=== PATIENT | male | born 1965 | race Caucasian/White ===

== ENCOUNTER 2018-07-08 10:37 | Day surgery (SDC) | payer BC ==
[~2018-07-08] VITALS: Ht 185.4 cm; Wt 122.5 kg
[~2018-07-08 10:37] MED LIST: ACET650SUP PR; ALLO100; ALLO300 PO; ASCO500; CALGLU500; CEPH500 PO; CETI10; CETI5 PO; CHOL10002; CHOL10002 PO; CODBUTASA PO; COLCRYS0.6 MG PO; Cleocin HCl150 MG PO; ESOM20; FENO160 PO; Flomax0.4 MG PO; HM SAW PALMETT1 EACH PO; HYDACE10B PO; HYDMOR2 PO; HYDR1TAB94 PO; HYOS0.375T PO; IBUP200; IBUP400 PO; IBUP600; KETO10 PO; LORA2 PO; MECL25 PO; OMEP10ER PO; OMEP20ER PO; ONDA8ODT MM; OXYACE5T; OXYACE5T PO; Omega 3 Fish O1 EACH PO; Omeprazole20 M1 PO; PROBIOTIC1 EAC1 PO; PROM25 PO; Percocet 5-3251 EACH PO; Phenergan25 MG PR; Prilosec Otc20 MG PO; RXHYDACE PO; RXHYDMOR2 PO; SAW PALMENTO; Saw Palmetto450 MG PO; St. John's Wor150 MG; St. John's Wor300 M1 PO; TAMS.4ER PO; VITAMIN E; ZERTEC; Zofran Odt4 MG PO; Zofran8 MG PO; [UNRECOGNIZED DRUG - OTHER]; [UNRECOGNIZED DRUG - OTHER]; [UNRECOGNIZED DRUG - OTHER]
[2018-07-08] MEDS ORDERED: Loratadine10 MG PO ×2 (10:59)
== END 2018-07-08 13:14 | disposition home or self-care (01) ==
LOC: ORSCSDS 10:37
PROVIDERS: Internal Medicine Gastroenterology
PROC: 0DBK8ZX Excision of Ascending Colon, Via Natural or Artificial Opening Endoscopic, Diagnostic (ICD-10-PCS; principal; 2018-07-08 12:15)
PROC: 0DBL8ZX Excision of Transverse Colon, Via Natural or Artificial Opening Endoscopic, Diagnostic (ICD-10-PCS; principal; 2018-07-08 12:15)
PROC: 0DBE8ZX Excision of Large Intestine, Via Natural or Artificial Opening Endoscopic, Diagnostic (ICD-10-PCS; principal; 2018-07-08 12:15)
PROC: 0DBP8ZX Excision of Rectum, Via Natural or Artificial Opening Endoscopic, Diagnostic (ICD-10-PCS; principal; 2018-07-08 12:15)
DX: R19.7 Diarrhea, unspecified (principal); D12.2 Benign neoplasm of ascending colon; D12.3 Benign neoplasm of transverse colon; D12.8 Benign neoplasm of rectum; K57.30 Diverticulosis of large intestine without perforation or abscess without bleeding; Z83.71 Family history of colonic polyps; G47.33 Obstructive sleep apnea (adult) (pediatric); Z79.899 Other long term (current) drug therapy; E66.9 Obesity, unspecified; Z68.35 Body mass index [BMI] 35.0-35.9, adult
CPT/HCPCS: 88305; J2704; J7120

== ENCOUNTER 2018-07-09 07:21 | Observation (INO) | payer BC ==
[~2018-07-09] VITALS: Ht 185.4 cm; Wt 122.7 kg
[~2018-07-09 07:21] MED LIST changes: +Loratadine10 MG PO
[2018-07-09 09:30] LABS: BASOPHILS ABSOLUTE AUTO 0.04 K/mm3 (0.00-0.23); BASOPHILS PERCENT AUTO 1 % (0-2); EOSINOPHILS PERCENT AUTO 3 % (0-6); Hematocrit 40.7 % (37.0-53.0); Hemoglobin 13.4 g/dL (13.5-17.5); IMMATURE GRAN ABSOLUTE AUTO 0.02 K/mm3 (0.00-0.10); IMMATURE GRAN PERCENT AUTO 0 % (0-1); LYMPHOCYTES ABSOLUTE AUTO 1.64 K/mm3 (0.84-5.20); LYMPHOCYTES PERCENT AUTO 28 % (21-46); MONOCYTES ABSOLUTE AUTO 0.65 K/mm3 (0.16-1.47); MONOCYTES PERCENT AUTO 11 % (4-13); Mean Corpuscular HGB 29.6 pg (26.0-34.0); Mean Corpuscular HGB Conc 32.9 g/dL (31.5-36.5); Mean Corpuscular Volume 90 fL (80-100); Mean Platelet Volume 9.4 fL (9.1-12.4); NEUTROPHILS ABSOLUTE AUTO 3.42 K/mm3 (1.96-9.15); NEUTROPHILS PERCENT AUTO 57 % (41-73); Platelet Count 266 K/mm3 (150-400); RDW Coefficient Variation 12.5 % (11.7-14.2); Red Blood Cell Count 4.52 M/mm3 (4.30-5.90); White Blood Cell Count 5.97 K/mm3 (4.00-11.30)
[2018-07-09 09:59] LABS: Alanine Aminotransfer (ALT/SGP 44 U/L (12-78); Albumin, Blood 3.9 g/dL (3.4-5.0); Albumin/Globulin Ratio 1.1 (0.8-1.8); Alk Phos 60 U/L (50-136); Anion Gap 4 mmol/L (6-16); Aspartate Aminotrans (AST/SGOT 29 U/L (12-37); Bilirubin, Total 0.4 mg/dL (0.1-1.0); Blood Urea Nitrogen 20 mg/dL (8-24); Bun/Creatinine Ratio 17.7 (12.0-20.0); CO2, Blood 27 mmol/L (21-32); Calcium, Blood 8.6 mg/dL (8.5-10.1); Chloride, Blood 107 mmol/L (98-108); Creatinine, Blood 1.13 mg/dL (0.60-1.20); Globulin, Blood 3.6 g/dL (2.2-4.0); Glomerular Filtration Rate >60 (60-); Glucose, Blood 117 mg/dL (70-99); Potassium, Blood 4.4 mmol/L (3.5-5.5); Sodium, Blood 138 mmol/L (136-145); Total Protein, Blood 7.5 g/dL (6.4-8.2)
--- NOTE | 2018-07-09 10:19 | NUR ---
PT ADMITTED PT ADMITTED AT [address] DR[address] CAVAZOS. DR. CAVAZOS CALLED FOR ORDERED & TO NOTIFY HIM THAT THE PT WAS ADMITTED. VSS. PT & OR[facility] TO ROOM. [facility] PT DENIES NEEDS AT THIS TIME. PT STATES HE CONTINUES TO HAVE LOOSE BLOODY STOOL.
--- NOTE | 2018-07-09 13:42 | NUR ---
PT UPDATE PT AMBULATED WITHIN & AROUND ROOM. PT STATES HIS STOOLS ARE FORMED NOW COMPARED TO BEFORE HE CAME IN WHEN THEY WERE LIQUID. PT STOOL IS DARK IN COLOR, METALIC SMELLING, OBVIOUS BLOOD WITHIN STOOL. NO OTHER CHANGES IN ASSESSENT AT THIS TIME. WILL CONTINUE TO MONITOR.
--- NOTE | 2018-07-09 16:39 | NUR ---
SHIFT SUMMARY NO CHANGES IN ASSESSMENT AT THIS TIME. PT LAST BM CHARTED & FORMED, BUT CONTINUES TO BE BLOODY. PT ENCOURAGED TO AMBULATE BY DR. CAVAZOS. VSS. H&H STABLE. REPEAT H&H RESULTS TO BE CALLED TO DR. CAVAZOS WHEN COMPLETED. PT IND IN ROOM. AT BEDSIDE. PT DENIES NEEDS AT THIS TIME. WILL CONTINUE TO MONITOR UNTIL TURNOVER IS COMPLETE.
[2018-07-09 19:58] LABS: Hematocrit 39.9 % (37.0-53.0); Hemoglobin 13.2 g/dL (13.5-17.5)
--- NOTE | 2018-07-10 05:15 | NUR ---
SHIFT SUMMARY PT HAD UNEVENTFUL SHIFT. PT HAD NO COMPLAINTS OR ISSUES. PT DID HAVE TWO BLACK, TARRY BLOODY STOOLS NOTED. PT SLEPT WELL T/O SHIFT. VSS. PT CURRENTLY SLEEPING AND BREATHING EASY WITH CPAP. PT STAYED NIGHT WITH PT. CALL [facility] IN REACH.
[2018-07-10 05:23] LABS: Hematocrit 39.5 % (37.0-53.0); Hemoglobin 12.8 g/dL (13.5-17.5)
--- NOTE | 2018-07-10 09:50 | NUR ---
DISCHARGE NOTE PT DISCHARGED POV WITH SPOUSE AND IN NO ACUTE DISTRESS; WRITTEN RX PROVIDED FOR REPEAT H&H IN A.M. BY DR. CAVAZOS. PT VERBALIZED UNDERSTANDING OF CONTINUING A CLEAR LIQUID DIET. ALL CURRENT REGULAR MEDICATIONS TO BE CONTINUED WITHOUT CHANGES.
== END 2018-07-10 09:58 | disposition home or self-care (01) ==
LOC: MEDS 07:21 → UNDOADMOB 08:20 → MEDS 08:20 → UNDOADMOB 15:47 → MEDS 07-10 09:58
PROVIDERS: ADMIT Internal Medicine Gastroenterology
DX: K62.5 Hemorrhage of anus and rectum (principal); R10.9 Unspecified abdominal pain; G47.33 Obstructive sleep apnea (adult) (pediatric); E78.00 Pure hypercholesterolemia, unspecified; Z88.2 Allergy status to sulfonamides; Z79.899 Other long term (current) drug therapy; Z88.5 Allergy status to narcotic agent
CPT/HCPCS: 36415; 80053; 85014; 85018; 85025; 94762; G0378

== ENCOUNTER → 2021-04-01 | Outpatient (CLI) | payer BC | LOC: LAB SHORT 09:27 → PLD 09:27 | DX: L91.8 Other hypertrophic disorders of the skin (principal) | CPT/HCPCS: 88305 ==

== ENCOUNTER → 2021-08-15 | Outpatient (CLI) | payer BC ==
[2021-08-15 11:02] LABS: Bun/Creatinine Ratio 22.5 (12.0-20.0); Creatinine, Blood 0.89 mg/dL (0.60-1.20); Potassium, Blood 4.2 mmol/L (3.5-5.5)
== END ==
LOC: LAB 09:22 → LAB SHORT 09:22
PROVIDERS: Physician Assistant
DX: I10 Essential (primary) hypertension (principal); R73.03 Prediabetes
CPT/HCPCS: 36415; 80048; 83036

== ENCOUNTER 2023-10-08 11:06 | Emergency (ER) | payer OTHER, BC ==
[~2023-10-08] VITALS: Ht 185.4 cm; Wt 138.3 kg
[2023-10-08] MEDS ORDERED: Ondansetron HCl 2 MG / ML 2ML Vial IV PRN (11:45)
[2023-10-08 11:57] LABS: BASOPHILS ABSOLUTE AUTO 0.05 K/mm3 (0.00-0.23); BASOPHILS PERCENT AUTO 1 % (0-2); EOSINOPHILS ABSOLUTE AUTO 0.08 K/mm3 (0.00-0.68); EOSINOPHILS PERCENT AUTO 1 % (0-6); Hematocrit 38.6 % (37.0-53.0); Hemoglobin 13.2 g/dL (13.5-17.5); IMMATURE GRAN ABSOLUTE AUTO 0.06 K/mm3 (0.00-0.10); IMMATURE GRAN PERCENT AUTO 1 % (0-1); LYMPHOCYTES ABSOLUTE AUTO 1.69 K/mm3 (0.84-5.20); LYMPHOCYTES PERCENT AUTO 18 % (21-46); MONOCYTES ABSOLUTE AUTO 1.07 K/mm3 (0.16-1.47); MONOCYTES PERCENT AUTO 11 % (4-13); Mean Corpuscular HGB 30.7 pg (26.0-34.0); Mean Corpuscular HGB Conc 34.2 g/dL (31.5-36.5); Mean Corpuscular Volume 90 fL (80-100); Mean Platelet Volume 9.7 fL (9.1-12.4); NEUTROPHILS ABSOLUTE AUTO 6.69 K/mm3 (1.96-9.15); NEUTROPHILS PERCENT AUTO 70 % (41-73); Platelet Count 292 K/mm3 (150-400); RDW Coefficient Variation 13.2 % (11.7-14.2); RDW Standard Deviation 43.2 fL (35.1-46.3); White Blood Cell Count 9.64 K/mm3 (4.00-11.30)
[2023-10-08 12:19] LABS: Albumin, Blood 4.3 g/dL (3.4-5.0); Albumin/Globulin Ratio 1.3 (0.8-1.8); Bun/Creatinine Ratio 15.4 (12.0-20.0); Calcium, Blood 9.1 mg/dL (8.5-10.1); Creatinine, Blood 1.95 mg/dL (0.60-1.20); Globulin, Blood 3.4 g/dL (2.2-4.0); Potassium, Blood 4.1 mmol/L (3.5-5.5); Total Protein, Blood 7.7 g/dL (6.4-8.2)
[2023-10-08] MEDS ORDERED: NS 500 ML IV SCH (12:30)
[2023-10-08] MEDS ORDERED: Acetaminophen 500 MG Tab PO ONE (12:35)
[2023-10-08 13:09] LABS: Source, Urine Clean Catch
[2023-10-08 13:23] LABS: Appearance, Urine Hazy (Clear); Bilirubin, Urine Neg (Neg); Blood, Urine 4+ (Neg); Color, Urine Yellow (P-Yellow); Glucose Qualitative, Urine Neg (Neg); Ketones, Urine Neg (Neg); Leukocyte Esterase, Urine Neg (Neg); Nitrite, Urine Neg (Neg); Protein, Urine 3+ (Neg); Specific Gravity, Urine 1.025 (1.003-1.022); Urobilinogen, Urine NORM (Normal)
[2023-10-08 13:33] LABS: Amorphous Light (0-Heavy)
[2023-10-08 13:34] LABS: Bacteria Few /hpf; Mucus Light (0-Heavy); Squamous Epithelial Cells Few /hpf (Few)
[2023-10-08 13:42] LABS: Calcium, Blood 8.9 mg/dL (8.5-10.1); Creatinine, Blood 1.78 mg/dL (0.60-1.20); Potassium, Blood 5.5 mmol/L (3.5-5.5)
[2023-10-08 14:15] VITALS: BP 112/69
== END 2023-10-08 14:28 | disposition home or self-care (01) ==
LOC: ER 11:06
PROVIDERS: Emergency Medicine
DX: T67.5XXA Heat exhaustion, unspecified, initial encounter (principal); R07.9 Chest pain, unspecified; N17.9 Acute kidney failure, unspecified; R79.89 Other specified abnormal findings of blood chemistry; R31.29 Other microscopic hematuria; J45.909 Unspecified asthma, uncomplicated; G47.33 Obstructive sleep apnea (adult) (pediatric); E78.5 Hyperlipidemia, unspecified; K21.9 Gastro-esophageal reflux disease without esophagitis; Z79.899 Other long term (current) drug therapy; Z88.5 Allergy status to narcotic agent; Z88.2 Allergy status to sulfonamides; Z91.040 Latex allergy status
CPT/HCPCS: 71045; 80048; 80053; 81001; 82550; 82570; 83880; 84300; 84484; 85025; 85379; 93005; 93010; 96361; 96374; 99285-25; A9270; J2405; J7030

== ENCOUNTER 2024-03-10 09:36 | Day surgery (SDC) | payer OTHER, BC ==
[~2024-03-10] VITALS: Ht 185.4 cm; Wt 138.8 kg
[~2024-03-10 09:36] MED LIST changes: +HYDROCODONE-AC1 EAC7 PO; +Lactated Ringer's 1,000 ML IV ONE; +ONDA4ODT MM; +Percocet 10-321 EACH PO
[2024-03-10] MEDS ORDERED: SILD25T (10:18)
[2024-03-10] MEDS ORDERED: ATOR20 (10:19)
[2024-03-10] MEDS ORDERED: LISI20 PO (10:19)
[2024-03-10] MEDS ORDERED: ZINC15 (10:20)
[2024-03-10] MEDS ORDERED: Lactated Ringer's 1,000 ML IV ONE (11:39)
[2024-03-10] MEDS ORDERED: propofoL 20 ML IV ONE (12:16)
[2024-03-10] MEDS ORDERED: propofoL 50 ML IV ONE (12:16)
[2024-03-10 13:20] VITALS: BP 112/76
== END 2024-03-10 13:29 | disposition home or self-care (01) ==
LOC: ORSCSDS 09:36
PROVIDERS: Internal Medicine Gastroenterology
PROC: 0DBH8ZX Excision of Cecum, Via Natural or Artificial Opening Endoscopic, Diagnostic (ICD-10-PCS; principal; 2024-03-10 11:15)
PROC: 0DBL8ZX Excision of Transverse Colon, Via Natural or Artificial Opening Endoscopic, Diagnostic (ICD-10-PCS; principal; 2024-03-10 11:15)
PROC: 0DBP8ZX Excision of Rectum, Via Natural or Artificial Opening Endoscopic, Diagnostic (ICD-10-PCS; principal; 2024-03-10 11:15)
DX: Z12.11 Encounter for screening for malignant neoplasm of colon (principal); Z86.0101 Personal history of adenomatous and serrated colon polyps; D12.0 Benign neoplasm of cecum; K62.1 Rectal polyp; D12.3 Benign neoplasm of transverse colon; K21.9 Gastro-esophageal reflux disease without esophagitis; I10 Essential (primary) hypertension; E78.5 Hyperlipidemia, unspecified; G47.33 Obstructive sleep apnea (adult) (pediatric); J45.909 Unspecified asthma, uncomplicated; F32.A Depression, unspecified; E66.01 Morbid (severe) obesity due to excess calories; Z68.41 Body mass index [BMI] 40.0-44.9, adult; Z79.899 Other long term (current) drug therapy
CPT/HCPCS: 88305; J2704; J7120